=== PATIENT | female | born 1995 | race African-American/Black ===

== ENCOUNTER 2020-12-23 13:18 | Emergency (ER) | payer OTHER ==
[2020-12-23 13:35] VITALS: BP 145/92; PULSE 71; TEMP 98.3; BMI 23.5
[2020-12-23] MEDS ORDERED: DIPHTH,PERTUSS(ACELL),TET 0.5 ML DISP.SYRIN IM ONE ×2 (14:03→14:08)
[2020-12-23] MEDS ORDERED: IBUPROFEN 600 MG TABLET (FP) PO ONE ×2 (14:03→14:08)
== END 2020-12-23 15:38 | disposition home or self-care (01) ==
LOC: JERFT 13:18
PROC: 3E0234Z Introduction of Serum, Toxoid and Vaccine into Muscle, Percutaneous Approach (ICD-10-PCS; principal; 2020-12-23)
DX: M79.642 Pain in left hand (principal); S61.305A Unspecified open wound of left ring finger with damage to nail, initial encounter; S61.307A Unspecified open wound of left little finger with damage to nail, initial encounter
CPT/HCPCS: 73130-TC-LT-FY; 90715; 99284-25

== ENCOUNTER 2023-02-10 23:23 | Emergency (ER) | payer BC, OTHER ==
[2023-02-10 23:28] VITALS: BP 141/95; PULSE 76; RESP 18; TEMP 98; BMI 22.8
[2023-02-11] MEDS ORDERED: DIPHTH,PERTUSS(ACELL),TET 0.5 ML DISP.SYRIN IM ONE ×2 (00:37→00:42)
[2023-02-11] MEDS ORDERED: ACETAMINOPHEN 500 MG TABLET (FP) PO ONE (00:40)
[2023-02-11] MEDS ORDERED: ACETAMINOPHEN 500 MG TABLET (FP) ONE (00:42)
== END 2023-02-11 02:43 | disposition home or self-care (01) ==
LOC: JER 23:23
PROC: 3E0234Z Introduction of Serum, Toxoid and Vaccine into Muscle, Percutaneous Approach (ICD-10-PCS; principal; 2023-02-10)
PROC: 0YQXXZZ Repair Right 5th Toe, External Approach (ICD-10-PCS; 2023-02-10)
DX: S91.311A Laceration without foreign body, right foot, initial encounter (principal); M79.674 Pain in right toe(s); W10.9XXA Fall (on) (from) unspecified stairs and steps, initial encounter; Y93.39 Activity, other involving climbing, rappelling and jumping off; Y92.009 Unspecified place in unspecified non-institutional (private) residence as the place of occurrence of the external cause
CPT/HCPCS: 90715; 99283-25

== ENCOUNTER 2023-02-20 23:11 | Emergency (ER) | payer BC ==
[2023-02-20 23:22] VITALS: BP 125/78; PULSE 66; RESP 18; TEMP 98; BMI 22.8
== END 2023-02-21 01:41 | disposition home or self-care (01) ==
LOC: JER 23:11
DX: Z48.02 Encounter for removal of sutures (principal)
CPT/HCPCS: 99281-25

== ENCOUNTER 2024-01-29 11:15 | Emergency (ER) | payer BC, OTHER ==
[2024-01-29 11:31] VITALS: BP 146/88; PULSE 92; RESP 17; TEMP 98; BMI 25.8
[2024-01-29] MEDS ORDERED: ACETAMINOPHEN 500 MG TABLET (FP) ONE (12:16)
[2024-01-29] MEDS: ACETAMINOPHEN 500 MG TABLET (FP) PO ONE (12:19)
[2024-01-29] MEDS ORDERED: KETOROLAC TROMETHAMINE 30 MG/1 ML VIAL ONE (12:40)
[2024-01-29] MEDS: KETOROLAC TROMETHAMINE 30 MG/1 ML VIAL IM ONE (12:44)
== END 2024-01-29 12:44 | disposition home or self-care (01) ==
LOC: JERFT 11:15
PROC: 3E0233Z Introduction of Anti-inflammatory into Muscle, Percutaneous Approach (ICD-10-PCS; principal; 2024-01-29)
DX: R51.9 Headache, unspecified (principal); R11.0 Nausea; V43.52XA Car driver injured in collision with other type car in traffic accident, initial encounter; Y92.410 Unspecified street and highway as the place of occurrence of the external cause
CPT/HCPCS: 84703; 99284-25